=== PATIENT | male | born 1965 | race Asian ===

== ENCOUNTER → 2021-07-08 | Outpatient (CLI) | payer OTHER | END | disposition home or self-care (01) | LOC: MRI 07:39 | PROVIDERS: ATTEND Family Medicine Adult Medicine | DX: S39.012A Strain of muscle, fascia and tendon of lower back, initial encounter (principal); M48.061 Spinal stenosis, lumbar region without neurogenic claudication; M47.817 Spondylosis without myelopathy or radiculopathy, lumbosacral region; M51.27 Other intervertebral disc displacement, lumbosacral region; X58.XXXA Exposure to other specified factors, initial encounter; Y93.89 Activity, other specified; Y92.89 Other specified places as the place of occurrence of the external cause; Y99.8 Other external cause status | CPT/HCPCS: 72148 ==